=== PATIENT | female | born 1950 | race Caucasian/White ===

== ENCOUNTER 2017-02-18 06:46 | Inpatient (IN) | payer OTHER ==
[~2017-02-18 06:46] MED LIST: ROPIVACAINE 0.2% 80 MG, EPINEPHrine 0.2 MG, KETOROLAC TROMETHAMINE 30 MG in BAG 0 ML IU ONE; TRANEXAMIC ACID 3,000 MG in NS 50 ML IRR ONE
[2017-02-18] MEDS ORDERED: ACETAMINOPHEN 325 MG TAB PO ONE (06:58)
[2017-02-18] MEDS ORDERED: FAMOTIDINE 20 MG TAB PO ONE (06:58)
[2017-02-18] MEDS ORDERED: ceFAZolin 2 GM/DEXTROSE 100 ML IV ONE (06:58)
[2017-02-18] MEDS ORDERED: DEXAMETHASONE 4 MG/ML VIAL IVP ONE (06:58)
--- NOTE | 2017-02-18 07:26 | PDHPUP ---
History & Physical Update H&P update statement: This history and physical update is based on an assessment of the patient which was completed after admission or registration (within 24 hours), but prior to the surgery/procedure. H&P update: H&P reviewed & patient examined, no change in patient's condition since H&P completed
[2017-02-18] MEDS ORDERED: LR 1,000 ML IV ONE (07:27)
[2017-02-18] MEDS ORDERED: LIDOCAINE 1% 2 ML INJ ID PRN (07:27)
[2017-02-18] MEDS ORDERED: TRANEXAMIC ACID 3,000 MG/50 ML BAG IRR ONE (07:47)
[2017-02-18] MEDS ORDERED: LIDOCAINE 2% 5 ML SDV ONE (08:00)
[2017-02-18] MEDS ORDERED: fentaNYL 100 MCG/2 ML INJ ONE (08:00)
[2017-02-18] MEDS ORDERED: PROPOFOL/EMULSION 500 MG/50 ML BOTTLE IV ONE ×2 (08:00→10:33)
[2017-02-18] MEDS ORDERED: ONDANSETRON 4 MG/2 ML VIAL ONE (08:03)
[2017-02-18] MEDS ORDERED: MIDAZOLAM 2 MG/2 ML VIAL IVP ONE (09:04)
--- NOTE | 2017-02-18 09:04 | PDANEPAE ---
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 , UNKNOWN WHICH ONE - Pulmonary History Hx COPD: No Hx Asthma/Reactive Airway Disease: No Hx Recent Upper Respiratory Infection: No Hx Oxygen in Use at Home: No Hx Sleep Apnea: No Sleep Apnea Screening Result - Last Documented: Negative - Neurologic History Hx Cerebrovascular Accident: No Hx Seizures: No Hx Dementia: No - Endocrine History Hx Diabetes: No - Renal History Hx Renal Disorders: Yes - Liver History Hx Hepatic Disorders: Yes Hepatic History Comment: ENZYMES A LITTLE OFF - Neurological & Psychiatric Hx Hx Neurological and Psychiatric Disorders: No Neurological / Psychiatric History Comment: ANXIETY - Cancer History Hx Cancer: Yes Cancer History Comment: BREAST - Congenital Disorder History Hx Congenital Disorders: No - GI History Hx Gastrointestinal Disorders: Yes Gastrointestinal History Comment: REFLUX - Other Health History Other Health History: NONE - Chronic Pain History Chronic Pain: Yes (RIGHT KNEE) - Surgical History Prior Surgeries: LAP CHOLEY, LUMPECTOMY ANE Review of Systems Review of Systems: - Exercise capacity METS (RN): 4 METS ANE Patient History - Allergies Allergies/Adverse Reactions: adhesive tape Allergy (Verified 01/26/17 12:03) Rash - Home Medications Home medications: home medication list seen and reviewed Home Medications: Ascorbic Acid [Vitamin C 500 mg (*)] 1,000 mg PO DAILY 01/26/17 [Last Taken 11/15] Aspirin [Aspirin 325 mg (*)] 325 mg PO DAILY 01/26/17 [Last Taken Unknown] Cholecalciferol Vit D3 [Vitamin D3 2000 units tab (OTC)] 4,000 units PO DAILY [Last Taken 02/04/17] Cyclobenzaprine [Flexeril 10 MG (*)] 10 mg PO Q8HRS PRN 01/26/17 [Last Taken Unknown] Diclofenac Sodium [Voltaren 75 MG (*)] 75 mg PO BID 01/26/17 [Last Taken ] Herbals/Supplements -Info Only 1 ea PO DAILY 01/26/17 [Last Taken 02/04/17] Hydrocodone/Acetaminophen [Magnolia 5/325 (*)] 1 tab PO Q4-6PRN PRN 01/26/17 [Last Taken Unknown] Levothyroxine [Synthroid 75 mcg (*)] 75 mcg PO DAILY06 01/26/17 [Last Taken 04:30] Loperamide HCl [Imodium 2 mg (*)] 2 mg PO PRN PRN 01/26/17 [Last Taken 02/16/17] Multivitamins [Multivitamin (*)] 1 each PO DAILY 01/26/17 [Last Taken 02/04/17] Omeprazole [Prilosec 20 mg] 20 mg PO BID PRN 01/26/17 [Last Taken 02/18/17 04:30 ] Ondansetron Odt [Zofran Odt 4 mg (*)] 4 mg PO Q6HRS PRN 01/26/17 [Last Taken Unknown] Potassium Cl [Klor-Con 20 meq (*)] 20 meq PO DAILY 01/26/17 [Last Taken 02/17/17 ] Simvastatin [Zocor] 20 mg PO HS 01/26/17 [Last Taken 02/17/17] Tamoxifen Citrate 20 mg PO DAILY 01/26/17 [Last Taken 02/17/17] celeCOXIB [Celebrex (*)] 200 mg PO DAILY 01/26/17 [Last Taken 02/17/17 20:00] guaiFENesin [Mucinex 600 MG (*)] 600 mg PO BID PRN 01/26/17 [Last Taken 02/16/17 ] oxyCODONE/APAP 5/325 [Percocet 5/325 (*)] 1 tab PO Q3-4PRN PRN 01/26/17 [Last Taken Unknown] traMADol [Ultram 50 mg (*)] 50 - 100 mg PO Q6HRS PRN 01/26/17 [Last Taken 21:00] - NPO status NPO Status: no food or drink >8 hours NPO Since - Liquids (Date): 02/17/17 NPO Since - Liquids (Time): 20:00 NPO Since - Solids (Date): 02/17/17 NPO Since - Solids (Time): 19:00 - Anes Hx Anes Hx: no prior problems - Smoking Hx Smoking Status: Former smoker - Family Anes Hx Family Hx Anesthesia Complications: NONE ANE Labs/Vital Signs - Vital Signs Blood Pressure: 126/71 Heart Rate: 102 Respiratory Rate: 20 O2 Sat (%): 90 Height: 162.56 cm Weight: 72.575 kg ANE Physical Exam - Airway Neck exam: decreased ROM Mallampati Score: Class 2 Mouth exam: normal dental/mouth exam - Pulmonary Pulmonary: no respiratory distress - Cardiovascular Cardiovascular: systolic murmur - ASA Status ASA Status: II ANE Anesthesia Plan Anesthesia Plan: spinal (RBA discussed)
[2017-02-18] MEDS ORDERED: DEXAMETHASONE 4 MG/ML VIAL ONE (09:05)
[2017-02-18] MEDS ORDERED: OXYCODONE/APAP 5/325 TAB PO PRN (10:48)
[2017-02-18] MEDS ORDERED: fentaNYL 100 MCG/2 ML INJ IVP PRN (10:48)
[2017-02-18] MEDS ORDERED: HYDROCODONE/APAP 5/325 TAB PO PRN (10:48)
[2017-02-18] MEDS ORDERED: NALOXONE HCL 0.4 MG/ML INJ IVP PRN (10:48)
[2017-02-18] MEDS ORDERED: HYDROmorphONE/DILAUDID 1 MG/ML INJ IVP PRN (10:48)
[2017-02-18] MEDS ORDERED: LR 500 ML IV PRN (10:48)
[2017-02-18] MEDS ORDERED: ONDANSETRON 4 MG/2 ML VIAL IVP PRN ×2 (10:48→11:02)
[2017-02-18] MEDS ORDERED: LACTULOSE 20 GM/30 ML UDCUP PO PRN (11:02)
[2017-02-18] MEDS ORDERED: PROMETHAZINE HCL 25 MG SUPPR PR PRN (11:02)
[2017-02-18] MEDS ORDERED: diphenhydrAMINE 25 MG CAP PO PRN (11:02)
[2017-02-18] MEDS ORDERED: DIPHENOXYLATE/ATROPINE LOMOTIL 1 TAB PO PRN (11:02)
[2017-02-18] MEDS ORDERED: METOCLOPRAMIDE 10 MG/2 ML VIAL IVP PRN (11:02)
[2017-02-18] MEDS ORDERED: MAGNESIUM HYDROXIDE 30 ML UDCUP PO PRN (11:02)
[2017-02-18] MEDS ORDERED: BISACODYL 10 MG SUPP PR PRN (11:02)
[2017-02-18] MEDS ORDERED: ONDANSETRON DISINTEGRATING 4 MG TAB PO PRN (11:02)
[2017-02-18] MEDS ORDERED: POLYETHYLENE GLYCOL 3350 17 GM PKT PO PRN (11:02)
[2017-02-18] MEDS ORDERED: PROMETHAZINE HCL 25 MG/ML INJ IVP PRN (11:02)
[2017-02-18] MEDS ORDERED: TEMAZEPAM 15 MG CAP PO PRN (11:02)
--- NOTE | 2017-02-18 11:02 | POSTOPPROG ---
Post Op Note Date of Operation: 02/18/17 Surgeon: Jenelle Chaudhary Systematic Theology Professor: Ki Wesley Anesthesiologist: Bro Anesthesia: Spinal Pre-op Diagnosis: R Hip DJD Post-op Diagnosis: same Indication: pain Procedure: R ANISH Findings: DJD hip Inf/Abcess present in the surg proc area at time of surgery?: No EBL: 100-500
[2017-02-18] MEDS ORDERED: LR 1,000 ML IV SCH (11:30)
--- NOTE | 2017-02-18 12:13 | POSTANESTH ---
Post Anesthetic Evaluation Cardiovascular Status: Normal, Stable Respiratory Status: Normal, Stable Level of Consciousness/Mental Status: Can Participate in Eval Pain Control: Adequate, Prn Tx Ordered Nausea/Vomiting Control: Adequate, Prn Tx Ordered Complications Possibly Related to Anesthesia: None Noted
[2017-02-18] MEDS: ACETAMINOPHEN 325 MG TAB PO SCH ×3 (14:22→23:07)
[2017-02-18] MEDS: CYCLOBENZAPRINE 10 MG TAB PO PRN ×2 (14:47→23:07)
[2017-02-18] MEDS: ceFAZolin 2 GM/DEXTROSE 100 ML IV SCH (17:35)
[2017-02-18] MEDS: oxyCODONE IR 5 MG TAB PO PRN ×3 (17:35→21:41)
[2017-02-18] MEDS: FAMOTIDINE 20 MG TAB PO SCH (20:06)
[2017-02-18] MEDS: SENNOSIDES/DOCUSATE SODIUM TAB PO SCH (20:06)
[2017-02-18] MEDS: ASPIRIN 325 MG TAB PO SCH (20:07)
[2017-02-18] MEDS ORDERED: NON-FORMULARY NEW DRUG (Simvastatin [Zocor] 20 MG) PO SCH (21:00)
[2017-02-18] MEDS ORDERED: ATORVASTATIN CALCIUM 10 MG TAB PO SCH (21:00)
[2017-02-19] MEDS: oxyCODONE IR 5 MG TAB PO PRN ×5 (01:00→14:52)
[2017-02-19] MEDS: ceFAZolin 2 GM/DEXTROSE 100 ML IV SCH (01:09)
--- NOTE | 2017-02-19 05:09 | GOP ---
[f rep st] OPERATIVE REPORT DATE OF OPERATION: 02/18/2017 SURGEON: Huseyin Chaudhary MD PARACHUTE OFFICER: Ki Wesley ANESTHESIA: Spinal. PREOPERATIVE DIAGNOSIS: Right hip osteoarthritis. POSTOPERATIVE DIAGNOSIS: Right hip osteoarthritis. PROCEDURE PERFORMED: Right total hip arthroplasty with x-ray. FINDINGS: ESTIMATED BLOOD LOSS: 200 cc. INDICATIONS: The patient has progressively worsening arthritis of the hip which has failed medical management. The patient understands the treatment options including continued non-operative care and has selected surgical intervention. The patient has decided to undergo total hip arthroplasty via the direct anterior approach, understanding the risks of the procedure including , but not limited to, neurovascular injury, infection, persistent pain, component wear and loosening, deep venous thrombosis, pulmonary embolism, limb length inequality, hip instability (including dislocation), and intra-operative fractures. DESCRIPTION OF PROCEDURE: After proper identification of the patient including verification and marking the surgical site, the patient was brought to the operating room and placed in the supine position. All bony prominences were well padded. Anesthesia was induced without complication and intravenous prophylactic antibiotics were administered prior to skin incision. The operative leg was placed in the Trumpf Arch table extension and the well leg in a Yellofin leg rose. The patient was prepped and draped in the usual sterile fashion. The C-arm was draped for intra-operative fluoroscopy to check acetabular position, femoral component position including leg length and femoral offset. Attention was then drawn to surgical exposure of the hip. An incision was made with a #10 Bard Deonte blade starting 3 cm lateral and 3 cm distal to the anterior superior iliac spine measuring 8-10 cm and coursing distally toward the greater trochanter. The skin and subcutaneous tissues were divided sharply down to the fascia sotero. The fascia sotero was incised in line with the skin incision exposing the underlying tensor fascia sotero muscle. The muscle was bluntly elevated from the fascia and the first extracapsular Cobra retractor was placed laterally at the junction of the superior femoral neck and greater trochanter. The lateral femoral circumflex vessels were identified, cauterized , and divided with the Aquamantys bipolar cautery. The deep investing fascia of the TFL was divided to allow proper mobilization of the muscle preventing damage during the retraction. The reflected head of the rectus femoris muscle was elevated off the anterior hip capsule and a medial Cobra retractor was placed just proximal to the lesser trochanter. The anterior capsulotomy was made sharply from the superolateral acetabulum to the saddle junction of the superior femoral neck and greater trochanter, then coursing inferomedial towards the lesser trochanter. The retractors were then placed in the intracapsular position for femoral neck osteotomy. Corresponding to pre-operative templating, the osteotomy was made with the oscillating saw carefully protecting the greater trochanter and soft tissues. The femoral head was removed from the acetabulum with a corkscrew and confirmed to be severely arthritic with exposed bone, deformity and osteophytes. Similar findings were confirmed in the acetabulum. The Arch table extension was then placed in 40 degrees external rotation. Attention was then drawn to the acetabular preparation. After placement of the anterior and posterior Cobra retractors outside the labrum and intracapsular, the circumferential labrum was removed sharply. The foveal contents were then removed and hemostasis obtained with cautery. The first reamer selected was sized using the removed femoral head. Reaming began with medialization and then commenced in 2 mm increments at 45 degrees of abduction and 15 degrees of anteversion using fluoroscopic navigation. Reaming ceased 1 mm less than the definitive acetabular component and corresponded to the pre-operative templating. The final acetabular component was inserted using fluoroscopy to achieve proper orientation yielding excellent purchase and stability in the acetabulum. The final acetabular liner was then placed and its seating confirmed. Attention was then turned to the femur. The Arch table extension was placed in extension and adduction, delivering the osteotomized femoral neck into the wound. A 2-pronged femoral elevator was placed at the calcar and another at the tip of the greater trochanter. The posterolateral capsule was released with cautery allowing mobilization of the femur lateral and anterior for preparation. The external rotators were visualized and preserved. A curette and rongeur were used to open the starting point for broaching. Serial broaching started with the #0 broach and ended with the broach that exhibited excellent fit in the proximal femur. A change in pitch during mallet strikes was accompanied by the inability to advance the broach any further. The trial reduction was performed and fluoroscopic navigation was utilized to check limb length. Adjustments were made to equalize limb length accordingly. After the final trials were accepted they were removed and the wound was copiously lavaged. The femoral component was seated to the same depth as the final broach and the femoral head was impacted onto the clean trunnion. The hip was then reduced for the final time and once more fluoroscopy was used to check that limb length equality was achieved. The wound was irrigated and closed in layers, the fascia sotero with 2-0 Quill, the subcutaneous tissue with 2-0 Quill, and the skin with Dermabond. Sterile dressings were applied. Final sharps and sponge counts were accurate. The patient was then transferred to a hospital bed and brought to the recovery room in stable condition. IMPLANTS: Accolate II, size 4, at 127. Acetabular component is a 57 mm Tritanium. The liner is a Trident X3, 32 mm. The head is a Biolox Delta 32 mm , +0. /[id number]/MODL MTDD
[2017-02-19 05:14] LABS: HEMATOCRIT 30.7 % (38.0-47.0)
[2017-02-19] MEDS: ACETAMINOPHEN 325 MG TAB PO SCH ×2 (05:44→12:09)
[2017-02-19] MEDS ORDERED: LEVOTHYROXINE 75 MCG TAB PO SCH (06:00)
[2017-02-19 07:21] VITALS: BP 97/58; PULSE 92; RESP 12; TEMP 98.2; O2SAT 96
[2017-02-19] MEDS: SENNOSIDES/DOCUSATE SODIUM TAB PO SCH (08:09)
[2017-02-19] MEDS: ASPIRIN 325 MG TAB PO SCH (08:10)
[2017-02-19] MEDS: FAMOTIDINE 20 MG TAB PO SCH (08:10)
[2017-02-19] MEDS ORDERED: TAMOXIFEN CITRATE 10 MG TAB PO SCH (09:00)
[2017-02-19] MEDS ORDERED: NON-FORMULARY NEW DRUG (Tamoxifen Citrate [Tamoxifen Citrate] 20 MG) PO SCH (09:00)
--- NOTE | 2017-02-19 09:14 | SOAPPROG ---
SOAP Progress Note Assessment/Plan: Assessment: Patient is doing well POD 1 s/p R ANISH Pain management: pain is well controlled on oral pain meds. VTE ppx: recommend aspirin daily for 3 weeks, cont MAYCOL and SCDs Anemia: level is expected initially postop. Asymptomatic. Continue to monitor D/c planning: d/c to home today pending release from PT Plan: 02/19/17 09:14 Objective: Vital Signs Temp Pulse Resp BP Pulse Ox 36.8 C 92 12 97/58 L 96 02/19/17 07:20 02/19/17 07:20 02/19/17 07:20 02/19/17 07:20 02/19/17 07:20 Laboratory Results 02/19/17 04:23 02/18/17 02/19/17 02/20/17 05:59 05:59 05:59 Intake Total 1535 Output Total 200 Balance 1335 ICD10 Worksheet Patient Problems: Problems Problem Status Onset C. difficile diarrhea Acute ~12/01/16
[2017-02-19] MEDS: CYCLOBENZAPRINE 10 MG TAB PO PRN (09:15)
[2017-02-19] MEDS ORDERED: FLU VACC QS 2017-18 (3YR+)/PF 0.5 ML SYR (FLUARIX QUAD) IM ONE (09:26)
--- NOTE | 2017-02-19 15:37 | ASDISCHSUM ---
Discharge Information Plan Status:Home with No Needs Medically Cleared to Leave: Discharge Date:02/19/2017 03:23 PM CM D/C Disposition:Home, Routine, Self-Care ADT D/C Disposition:Home, Routine, Self-Care Projected Discharge Date:02/19/2017 03:23 PM Transportation at D/C: Discharge Delay Reason: Follow-Up Date:02/19/2017 03:23 PM Discharge Slot: Final Diagnosis: Placement Information Patient Contact Information Contact Name:SANDRO Relationship:Son Address:[address] Work Phone: City:[place] Alternate Phone: [facility]/Zip Code:[place] [address] Email: Financial Information Financial Class: Primary Plan Desc:MEDICARE INPATIENT Primary Plan Number:[id number] Secondary Plan Desc: Secondary Plan Number: Assessment Information [facility] CM Progress Note CM Note CM Note Notes: PT/OT clear pt for home. Pt medically stable for d/c no CM d/c needs identified. Date Signed: 02/19/2017 03:35 PM Electronically Signed By:NOHEMI Presley Intervention Information
== END 2017-02-19 15:23 | disposition home or self-care (01) | DRG 470 ==
LOC: F3N 06:46
PROVIDERS: ADMIT Orthopaedic Surgery; ATTEND Orthopaedic Surgery
PROC: 0SR904Z Replacement of Right Hip Joint with Ceramic on Polyethylene Synthetic Substitute, Open Approach (ICD-10-PCS; principal; 2017-02-18 10:15)
DX: M16.11 Unilateral primary osteoarthritis, right hip (principal); K21.9 Gastro-esophageal reflux disease without esophagitis; Z85.3 Personal history of malignant neoplasm of breast
CPT/HCPCS: 97110-GP; 97116-GP; 97161-GP; 97165-GO; G0008; G8978-GP-CI; G8979-GP-CI; G8980-GP-CI; G8987-GO-CI; G8988-GO-CI; G8989-GO-CI; J0171; J0690; J1100; J1885; J2250; J2405; J2704; J2795; J3010

== ENCOUNTER 2017-05-20 11:15 | Inpatient (IN) | payer OTHER ==
[~2017-05-20 11:15] MED LIST changes: -ROPIVACAINE 0.2% 80 MG, EPINEPHrine 0.2 MG, KETOROLAC TROMETHAMINE 30 MG in BAG 0 ML IU ONE; +ROPIVACAINE 0.2% 80 MG, EPINEPHrine 0.2 MG, KETOROLAC TROMETHAMINE 30 MG in SYRINGE 0 ML IU ONE
[2017-05-20] MEDS ORDERED: TRANEXAMIC ACID 3,000 MG/50 ML BAG IRR ONE (12:36)
[2017-05-20] MEDS ORDERED: VANCOMYCIN 1 GM VIAL ONE (12:37)
[2017-05-20] MEDS ORDERED: FAMOTIDINE 20 MG TAB PO ONE (12:55)
[2017-05-20] MEDS ORDERED: ceFAZolin 2 GM/SWFI 2 GM/20 ML SYR IVP ONE (12:55)
[2017-05-20] MEDS ORDERED: ACETAMINOPHEN 325 MG TAB PO ONE (12:55)
[2017-05-20] MEDS ORDERED: DEXAMETHASONE 4 MG/ML VIAL IVP ONE (12:55)
[2017-05-20] MEDS ORDERED: LR 1,000 ML IV ONE (13:37)
[2017-05-20] MEDS ORDERED: LIDOCAINE 1% 2 ML INJ ID PRN (13:37)
--- NOTE | 2017-05-20 14:28 | PDANEPAE ---
ANE History of Present Illness R TKA revision. 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 , UNKNOWN WHICH ONE - Pulmonary History Hx COPD: No Hx Asthma/Reactive Airway Disease: No Hx Recent Upper Respiratory Infection: No Hx Oxygen in Use at Home: No Hx Sleep Apnea: No Sleep Apnea Screening Result - Last Documented: Negative - Neurologic History Hx Cerebrovascular Accident: No Hx Seizures: No Hx Dementia: No - Endocrine History Hx Diabetes: No Endocrine History Comment: "hyperthyroid" per PCP - Renal History Hx Renal Disorders: Yes - Liver History Hx Hepatic Disorders: Yes Hepatic History Comment: "fatty liver" - holding stable - Neurological & Psychiatric Hx Hx Neurological and Psychiatric Disorders: No Neurological / Psychiatric History Comment: ANXIETY - Cancer History Hx Cancer: Yes Cancer History Comment: R BREAST-on Tamoxifen - Congenital Disorder History Hx Congenital Disorders: No - GI History Hx Gastrointestinal Disorders: Yes Gastrointestinal History Comment: REFLUX - Other Health History Other Health History: R knee and R shoulder pain - Chronic Pain History Chronic Pain: Yes (RIGHT KNEE) - Surgical History Prior Surgeries: R TOTAL HIP 02-18-17. CATARACT BILAT -16. LAP MAYRA 17. R BREAST LUMPECTOMY W/LYMPH NODES EXCISED '14. R knee partial replacement '03 ANE Review of Systems Review of Systems: - Exercise capacity METS (RN): 4 METS ANE Patient History - Allergies Allergies/Adverse Reactions: silver [From Tegaderm AG Mesh] Allergy (Verified 05/20/17 13:03) Rash - Home Medications Home Medications: Ascorbic Acid [Vitamin C 500 mg (*)] 1,000 mg PO DAILY 01/26/17 [Last Taken 11/15] Cholecalciferol Vit D3 [Vitamin D3 2000 units tab (OTC)] 4,000 units PO DAILY [Last Taken 05/06/17] Herbals/Supplements -Info Only 1 ea PO DAILY 01/26/17 [Last Taken 05/06/17] Levothyroxine [Synthroid 75 mcg (*)] 75 mcg PO DAILY06 01/26/17 [Last Taken 07:00] Loperamide HCl [Imodium 2 mg (*)] 2 mg PO PRN PRN 01/26/17 [Last Taken 05/16/17] Multivitamins [Multivitamin (*)] 1 each PO DAILY 01/26/17 [Last Taken 05/06/17] Omeprazole [Prilosec 20 mg] 20 mg PO HS 01/26/17 [Last Taken 05/20/17 07:00] Potassium Cl [Klor-Con 20 meq (*)] 20 meq PO HS 01/26/17 [Last Taken 05/19/17 20 :00] Simvastatin [Zocor] 20 mg PO HS 01/26/17 [Last Taken 05/19/17 20:00] Tamoxifen Citrate 20 mg PO HS 01/26/17 [Last Taken 05/06/17] - NPO status NPO Since - Liquids (Date): 05/19/17 NPO Since - Liquids (Time): 17:00 NPO Since - Solids (Date): 05/19/17 NPO Since - Solids (Time): 13:00 - Smoking Hx Smoking Status: Former smoker - Family Anes Hx Family Hx Anesthesia Complications: NONE ANE Labs/Vital Signs - Vital Signs Blood Pressure: 136/95 Heart Rate: 126 Respiratory Rate: 16 O2 Sat (%): 92 Height: 167.64 cm Weight: 72.575 kg ANE Physical Exam - Airway Neck exam: FROM Mallampati Score: Class 1 Mouth exam: normal dental/mouth exam - Pulmonary Pulmonary: clear to auscultation - Cardiovascular Cardiovascular: regular rate and rhythym ANE Anesthesia Plan Anesthesia Plan: spinal Regional Anesthesia: adductor canal FNB
[2017-05-20] MEDS ORDERED: MIDAZOLAM 2 MG/2 ML VIAL ONE (14:59)
[2017-05-20] MEDS ORDERED: fentaNYL 100 MCG/2 ML INJ ONE (15:10)
[2017-05-20] MEDS ORDERED: PROPOFOL 200 MG/20 ML VIAL ONE ×2 (15:10→16:21)
[2017-05-20] MEDS ORDERED: LOPERAMIDE HCL 2 MG CAP PO PRN (15:36)
[2017-05-20] MEDS ORDERED: PHENYLEPHRINE HCL 100 MCG/ML SYR ONE (15:38)
[2017-05-20] MEDS ORDERED: DIPHENOXYLATE/ATROPINE LOMOTIL 1 TAB PO PRN (15:39)
[2017-05-20] MEDS ORDERED: PROMETHAZINE HCL 25 MG SUPPR PR PRN (15:39)
[2017-05-20] MEDS ORDERED: TEMAZEPAM 15 MG CAP PO PRN (15:39)
[2017-05-20] MEDS ORDERED: METOCLOPRAMIDE 10 MG/2 ML VIAL IVP PRN (15:39)
[2017-05-20] MEDS ORDERED: PROMETHAZINE HCL 25 MG/ML INJ IVP PRN (15:39)
[2017-05-20] MEDS ORDERED: diphenhydrAMINE 25 MG CAP PO PRN (15:39)
[2017-05-20] MEDS ORDERED: BISACODYL 10 MG SUPP PR PRN (15:39)
[2017-05-20] MEDS ORDERED: ONDANSETRON DISINTEGRATING 4 MG TAB PO PRN (15:39)
[2017-05-20] MEDS ORDERED: POLYETHYLENE GLYCOL 3350 17 GM PKT PO PRN (15:39)
[2017-05-20] MEDS ORDERED: CYCLOBENZAPRINE 10 MG TAB PO PRN (15:39)
[2017-05-20] MEDS ORDERED: ONDANSETRON 4 MG/2 ML VIAL IVP PRN (15:39)
[2017-05-20] MEDS ORDERED: LACTULOSE 20 GM/30 ML UDCUP PO PRN (15:39)
[2017-05-20] MEDS ORDERED: MAGNESIUM HYDROXIDE 30 ML UDCUP PO PRN (15:39)
[2017-05-20] MEDS ORDERED: LR 1,000 ML IV SCH (16:00)
[2017-05-20] MEDS ORDERED: PROPOFOL/EMULSION 500 MG/50 ML BOTTLE IV ONE (16:22)
[2017-05-20] MEDS ORDERED: NALOXONE HCL 0.4 MG/ML INJ IVP PRN (16:42)
[2017-05-20] MEDS ORDERED: fentaNYL 100 MCG/2 ML INJ IVP PRN (16:42)
[2017-05-20] MEDS ORDERED: ROPIVACAINE HCL 150 MG/30 ML INJ ONE (17:09)
--- NOTE | 2017-05-20 17:09 | POSTOPPROG ---
Post Op Note Date of Operation: 05/20/17 Surgeon: Jenelle Can Premix Concrete Batcher: fabienne can Anesthesiologist: dr. aedn Anesthesia: Spinal, Other (Specify) (adductor canal block) Pre-op Diagnosis: painful R partial knee arthroplasty Post-op Diagnosis: same Indication: right knee pain in setting of partial knee arthroplasty and ligament laxity Procedure: R TKA revision Inf/Abcess present in the surg proc area at time of surgery?: No EBL: 50-100
[2017-05-20] MEDS ORDERED: ATORVASTATIN CALCIUM 10 MG TAB PO SCH (21:00)
[2017-05-20] MEDS ORDERED: POTASSIUM CL 20 MEQ TAB PO SCH (21:00)
[2017-05-20] MEDS ORDERED: PANTOPRAZOLE SODIUM 40 MG TAB PO SCH (21:00)
[2017-05-20] MEDS: ceFAZolin 2 GM/SWFI 2 GM/20 ML SYR IVP SCH (21:04)
[2017-05-20] MEDS: ASPIRIN EC 81 MG TAB PO SCH (21:08)
[2017-05-20] MEDS: oxyCODONE IR 5 MG TAB PO PRN (21:09)
[2017-05-20] MEDS: FAMOTIDINE 20 MG TAB PO SCH (21:09)
[2017-05-20] MEDS: ACETAMINOPHEN 325 MG TAB PO SCH ×2 (21:10→23:39)
[2017-05-20] MEDS: SENNOSIDES/DOCUSATE SODIUM TAB PO SCH (21:11)
[2017-05-21 03:43] VITALS: RESP 16
[2017-05-21] MEDS: oxyCODONE IR 5 MG TAB PO PRN ×3 (03:58→15:03)
[2017-05-21] MEDS: ceFAZolin 2 GM/SWFI 2 GM/20 ML SYR IVP SCH (05:05)
[2017-05-21] MEDS: ACETAMINOPHEN 325 MG TAB PO SCH ×2 (05:05→13:12)
[2017-05-21] MEDS ORDERED: LEVOTHYROXINE 75 MCG TAB PO SCH (06:00)
[2017-05-21 06:46] LABS: HEMATOCRIT 37.7 % (38.0-47.0)
[2017-05-21] MEDS: FAMOTIDINE 20 MG TAB PO SCH (08:30)
[2017-05-21] MEDS: ASPIRIN EC 81 MG TAB PO SCH (08:30)
[2017-05-21 09:18] VITALS: TEMP 97.5
--- NOTE | 2017-05-21 09:25 | SOAPPROG ---
SOAP Progress Note Assessment/Plan: Assessment: Plan: 05/21/17 09:24 Patient is doing well POD 1 s/p R TKA revision Pain management: pain is well controlled on oral pain meds. VTE ppx: recommend aspirin daily for 3 weeks, cont MAYCOL and SCDs Anemia: level is expected initially postop. Asymptomatic. Continue to monitor D/c planning: d/c to home today pending release from PT Subjective: Ann is doing well today, denies SOB, chest pain and N/V. Objective: Vital Signs Temp Pulse Resp BP Pulse Ox 36.4 C 102 H 16 98/70 L 94 05/21/17 08:00 05/21/17 08:00 05/21/17 08:00 05/21/17 08:00 05/21/17 08:00 Laboratory Results 05/21/17 05:05 05/20/17 05/21/17 05/22/17 05:59 05:59 05:59 Intake Total 3250 300 Output Total 655 425 Balance 2595 -125 RLE: incision dressing is clean and dry, NVI, +pf/df ICD10 Worksheet Patient Problems: Problems Problem Status Onset Primary localized osteoarthritis of right knee Acute C. difficile diarrhea Acute ~12/01/16 Osteoarthritis of right hip Acute
[2017-05-21] MEDS: SENNOSIDES/DOCUSATE SODIUM TAB PO SCH (09:50)
[2017-05-21 12:18] VITALS: BP 105/69; PULSE 98; O2SAT 92
--- NOTE | 2017-05-22 09:41 | ASDISCHSUM ---
Discharge Information Plan Status:Home with No Needs Medically Cleared to Leave: Discharge Date:05/21/2017 04:45 PM CM D/C Disposition:Home, Routine, Self-Care ADT D/C Disposition:Home, Routine, Self-Care Projected Discharge Date:05/21/2017 04:45 PM Transportation at D/C: Discharge Delay Reason: Follow-Up Date:05/21/2017 04:45 PM Discharge Slot: Final Diagnosis: Placement Information Patient Contact Information Contact Name:SANDRO Relationship:Son Address:[address] Work Phone: City:[place] Alternate Phone: [facility]/Zip Code:[place] [address] Email: Financial Information Financial Class: Primary Plan Desc:MEDICARE INPATIENT Primary Plan Number:[id number] Secondary Plan Desc: Secondary Plan Number: Assessment Information CM Supervisor Cereal Assessment CM Note CM Note Notes: Agustin is planning to discharge home with the support of her daughter. She has made arrangements for outpatient physical therapy on May 28. Agustin has obtained a walker and is well prepared for the surgery. Date Signed: 05/15/2017 12:15 PM Electronically Signed By:Carolyn Abraham Intervention Information
--- NOTE | 2017-05-22 13:39 | GOP ---
[f rep st] OPERATIVE REPORT DATE OF OPERATION: 05/20/2017 SURGEON: Huseyin Chaudhary MD COLDFUSION: Ann Chaudhary, MADDY. ANESTHESIA: Spinal. PREOPERATIVE DIAGNOSIS: Failed unicompartmental arthroplasty. POSTOPERATIVE DIAGNOSIS: Failed unicompartmental arthroplasty. PROCEDURE PERFORMED: Right total knee arthroplasty. FINDINGS: failed partial knee replacement ESTIMATED BLOOD LOSS: 30 cc. INDICATIONS: The patient is a 66-year-old female who had a previous right partial knee replacement which has failed to provide stability. The patient had risks and benefits explained to her and informed consent was obtained. DESCRIPTION OF PROCEDURE: The patient was identified in the preoperative holding area. The lower extremity was marked. The patient was brought back to the operating room where the right lower extremity had a nonsterile tourniquet placed. She was then prepped and draped in usual sterile fashion. A time-out was taken confirming patient, laterality, procedure, allergies, and antibiotic status. I then inflated the tourniquet. The tourniquet was up for a total of 56 minutes. We made our incision through a prior arthrotomy, identified all polyethylene. The tibial and prior femoral component were well fixed. We made our proximal tibial cut and removed the tibial component, made the distal femoral cut and removed the femoral component. We then sized this to a size 2 femur and a size 4 tibia. Four in one block was used on the femur. Notch cut was made and trial components were placed 11 mm poly was stable with all trial components. It was noted that the patient's medial tibia was worn and needed attention and a 5 mm step cut was made on the medial tibial condyle. This was done without difficulty. The incision was irrigated with topical tranexamic acid. Cemented the final components, a Triathlon universal size 4 baseplate with a 5 mm medial tibial augment, a size 2 posterior stabilized femur with a 4 x 11 mm polyethylene and a 35 mm patellar button. This was made after we resurfaced the posterior aspect of the patella. All excess cement was removed. We then copiously irrigated the incision. The incision was closed in layers place in sterile dressings. She was awakened and brought to PACU in good condition, having tolerated the procedure well. /[id number]/MODL MTDD
== END 2017-05-21 16:45 | disposition home or self-care (01) | DRG 468 ==
LOC: F3N 12:39
PROVIDERS: ADMIT Orthopaedic Surgery; ATTEND Orthopaedic Surgery
DX: T84.022A Instability of internal right knee prosthesis, initial encounter (principal); E03.9 Hypothyroidism, unspecified
CPT/HCPCS: 97161-GP; 97165-GO; C1713; G8978-GP-CI; G8979-GP-CI; G8980-GP-CI; G8987-GO-CI; G8988-GO-CI; G8989-GO-CI; J0171; J0690; J1100; J1885; J2250; J2370; J2704; J2795; J3010; J3370

== ENCOUNTER → 2017-11-04 | Outpatient (CLI) | payer OTHER | LOC: FIMAGING 07:59 | PROVIDERS: ATTEND Internal Medicine Hematology & Oncology | DX: Z12.31 Encounter for screening mammogram for malignant neoplasm of breast (principal); Z85.3 Personal history of malignant neoplasm of breast; Z80.3 Family history of malignant neoplasm of breast ==

== ENCOUNTER → 2018-11-05 | Outpatient (CLI) | payer OTHER | LOC: FIMAGING 09:59 ==